=== PATIENT | female | born 1970 | race Caucasian/White ===

== ENCOUNTER 2018-11-26 15:24 | Emergency (ER) | payer OTHER ==
[2018-11-26] MEDS ORDERED: ALBUTEROL SO4 0.083% IH SOL 2.5 MG/3 ML VIAL.NEB. NEB ONE (15:39)
--- NOTE | 2018-11-26 15:39 | PDOC ---
Rapid Medical Evaluation Time Seen by Provider: 11/26/18 15:35 Medical Evaluation: Allergies Allergy/AdvReac Type Severity Reaction Status Date / Time No Known Allergies Allergy Verified 11/26/18 15:36 11/26/18 15:37 I performed a brief in-person evaluation of this patient. Chief complaint: Cough x 3 wks, no fevers. Hx seizure disorder. Pertinent physical exam findings: Scant end expiratory wheezing, moist cough. I have ordered the following: Influenza, CXR, albuterol neb Patient to proceed to the ED for further evaluation. 11/26/18 15:38 Discharge Disposition - Diagnosis Cough - Referrals - Patient Instructions - Post Discharge Activity
[2018-11-26 15:40] VITALS: BP 137/80; PULSE 101; TEMP 98.2; BMI 34.3
--- NOTE | 2018-11-26 17:25 | PDOC ---
History of Present Illness - General Chief Complaint: Cold Symptoms Stated Complaint: COLD SYMPTOMS Time Seen by Provider: 11/26/18 15:35 History Source: Patient Exam Limitations: No Limitations - History of Present Illness Timing/Duration: reports: getting worse Past History - Past Medical History Allergies/Adverse Reactions: Allergies Allergy/AdvReac Type Severity Reaction Status Date / Time No Known Allergies Allergy Verified 11/26/18 15:36 Home Medications: Ambulatory Orders NK [No Known Home Medication] 11/26/18 COPD: No Seizures: Yes - Immunization History Immunization Up to Date: Yes - Suicide/Smoking/Psychosocial Hx Smoking History: Never smoked Information on smoking cessation initiated: No Hx Alcohol Use: No Drug/Substance Use Hx: No *Physical Exam - Vital Signs Last Vital Signs Temp Pulse Resp BP Pulse Ox 98.2 F 101 H 16 137/80 100 11/26/18 15:36 11/26/18 15:36 11/26/18 15:36 11/26/18 15:36 11/26/18 15:36 Moderate Sedation - Procedure Monitoring Vital Signs: Procedure Monitoring Vital Signs Temperature 98.2 F 11/26/18 15:36 Pulse Rate 101 H 11/26/18 15:36 Respiratory Rate 16 11/26/18 15:36 Blood Pressure 137/80 11/26/18 15:36 O2 Sat by Pulse Oximetry (%) 100 11/26/18 15:36 *DC/Admit/Observation/Transfer Diagnosis at time of Disposition: Cough - Referrals - Patient Instructions - Post Discharge Activity
--- NOTE | 2018-11-26 17:38 | PDOC ---
History of Present Illness - General Chief Complaint: Cold Symptoms Stated Complaint: COLD SYMPTOMS Time Seen by Provider: 11/26/18 15:35 History Source: Patient Exam Limitations: No Limitations - History of Present Illness Initial Comments: 11/26/18 17:44 Here with complaints of 3 weeks of cough that progressively worsening. States has had episodes over the past 2 days that has been and able to allow her to sleep due to the coughing. Has had no fevers and denies phlegm production Timing/Duration: reports: getting worse Severity: reports: moderate Past History - Travel Traveled outside of the country in the last 30 days: No Close contact w/someone who was outside of country & ill: No - Past Medical History Allergies/Adverse Reactions: Allergies Allergy/AdvReac Type Severity Reaction Status Date / Time No Known Allergies Allergy Verified 11/26/18 15:36 Home Medications: Ambulatory Orders Albuterol Sulfate Inhaler - [Ventolin HFA Inhaler -] 1 - 2 inh PO Q4H #1 inhaler 11/26/18 Azithromycin [Zithromax Tri-Giovanny (3 DAYS) -] 500 mg PO DAILY #3 tablet 11/26/18 predniSONE [Deltasone -] 20 mg PO BID #8 tablet 11/26/18 COPD: No Seizures: Yes - Immunization History Immunization Up to Date: Yes - Suicide/Smoking/Psychosocial Hx Smoking History: Never smoked Information on smoking cessation initiated: No Hx Alcohol Use: No Drug/Substance Use Hx: No Review of Systems - Review of Systems Able to Perform ROS?: Yes Is the patient limited [place] proficient: Yes Constitutional: Yes: Symptoms Reported, See HPI, Malaise. No: Chills, Fever HEENTM: Yes: Symptoms Reported, Nose Congestion Respiratory: Yes: Symptoms reported, See HPI, Cough (nonproductive) ABD/GI: Yes: See HPI. No: Symptoms Reported Neurological: Yes: Symptoms reported, See HPI, Headache All Other Systems: Reviewed and Negative *Physical Exam - Vital Signs Last Vital Signs Temp Pulse Resp BP Pulse Ox 98.2 F 101 H 16 137/80 100 11/26/18 15:36 11/26/18 15:36 11/26/18 15:36 11/26/18 15:36 11/26/18 15:36 - Physical Exam General Appearance: Yes: Nourished, Appropriately Dressed, Apparent Distress, Mild Distress, Moderate Distress HEENT: positive: TREVOR, Normal ENT Inspection, Pharynx Normal, Nasal Congestion, Rhinorrhea. 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 negative: Tender, Lymphadenopathy (R), Lymphadenopathy (L) Respiratory/Chest: positive: Decreased Breath Sounds, Rhonchi. negative: Lungs Clear, Normal Breath Sounds Gastrointestinal/Abdominal: positive: Soft Musculoskeletal: negative: Normal Inspection Extremity: positive: Normal Capillary Refill, Normal Inspection Integumentary: positive: Dry, Warm, Pale Neurologic: positive: family services assistant II-XII NML intact, Fully Oriented, Alert, Normal Mood/ Affect, Normal Response, Motor Strength 5/5 Moderate Sedation - Procedure Monitoring Vital Signs: Procedure Monitoring Vital Signs Temperature 98.2 F 11/26/18 15:36 Pulse Rate 101 H 11/26/18 15:36 Respiratory Rate 16 11/26/18 15:36 Blood Pressure 137/80 11/26/18 15:36 O2 Sat by Pulse Oximetry (%) 100 11/26/18 15:36 Progress Note - Progress Note Progress Note: Chest x-ray shows early infiltrate to the left lower lobe, will treat with Zithromax and has had some improvement with albuterol and prednisone, will continue those medications and have follow-up with PMD early next week Medical Decision Making - Medical Decision Making 11/26/18 18:18 Influenza A, B testing negative *DC/Admit/Observation/Transfer Diagnosis at time of Disposition: Cough - Discharge Dispostion Disposition: HOME Condition at time of disposition: Stable Decision to Admit order: No - Prescriptions Prescriptions: Albuterol Sulfate Inhaler - [Ventolin HFA Inhaler -] 1 - 2 inh PO Q4H #1 inhaler Azithromycin [Zithromax Tri-Giovanny (3 DAYS) -] 500 mg PO DAILY #3 tablet predniSONE [Deltasone -] 20 mg PO BID #8 tablet - Referrals - Patient Instructions Printed Discharge Instructions: DI for Acute Bronchitis Additional Instructions: Rest, drink lots of fluids: Teas, water, soups, Pedialyte Saltwater gargles Steamy showers/seem to face break up mucus Avoid contact with others until fevers and cough resolved Lots of handwashing and good hygiene Continue [id number] medications for symptomatic relief Tylenol or Motrin for fever and pain Continue albuterol nebulizers every 4-6 hours for the next 2 days then as needed for continued cough Prednisone as directed until completed Complete azithromycin, 500 mg tablet daily for the next 3 days Followup with private physician in one to 2 days Return to emergency department / pediatric hospital for worsened symptoms, fevers, dehydration - Post Discharge Activity Forms/Work/School Notes: Back to Work
[2018-11-26] MEDS ORDERED: ALBUTEROL SO4 2.5/IPRATROPIUM 0.5 INH SOL 3 ML VIAL.NEB. NEB ONE ×2 (17:49→18:04)
[2018-11-26] MEDS ORDERED: predniSONE 20 MG TABLET (UD) PO ONE (17:49)
[2018-11-26] MEDS ORDERED: predniSONE 20 MG TABLET (UD) ONE (18:04)
== END 2018-11-26 18:38 | disposition home or self-care (01) ==
LOC: JERFT 15:24
PROC: 3E0F7GC Introduction of Other Therapeutic Substance into Respiratory Tract, Via Natural or Artificial Opening (ICD-10-PCS; principal; 2018-11-26)
DX: J20.9 Acute bronchitis, unspecified (principal); Z86.69 Personal history of other diseases of the nervous system and sense organs
CPT/HCPCS: 71046-TC-FY; 84703; 87804; 94640; 99281-25